=== PATIENT | male | born 1995 | race Two or more races ===

== ENCOUNTER → 2024-11-16 | Outpatient (CLI) | payer BC, SELFPAY ==
[2024-11-16 08:54] LABS: Motl CLS 1 60
[2024-11-16 10:06] LABS: % Variance 0 %; % Variance Motility 8 %; Count Side 1 31; Count Side 2 31; Motl CLS 2 65; Room Temperature 24 (20-27C (Area)); Sperm Count 31 Million (20-50); Sperm Motility 62 % (>=50)
== END | disposition home or self-care (01) ==
LOC: SLDO 07:14
PROVIDERS: Referring Provider Nurse Practitioner Family; Visit Provider Nurse Practitioner Family
DX: N46.9 Male infertility, unspecified (principal)
CPT/HCPCS: 89310